=== PATIENT | male | born 1955 | race Caucasian/White ===

== ENCOUNTER 2019-04-11 10:46 | Emergency (ER) | payer MEDICAID, SELFPAY ==
[2019-04-11 10:50] VITALS: BP 198/118; PULSE 76; RESP 16; TEMP 36.8; O2SAT 96
[2019-04-11] MEDS: Tetracaine 0.5% 4 ML BTL (10:56)
[2019-04-11] MEDS: Fluorescein STRIPS 100/BOX 1 MG (10:56)
--- NOTE | 2019-04-11 11:21 | W.ED.GENAD ---
Discharge Plan Disposition Patient Disposition: HOME Condition: Stable Discharge Details Chief Complaint: EyeProblem Clinical Impression: Left eye pain, Foreign body of left eye, Hypertension Primary Care Provider: Genevieve Holland ED Provider: Sera Olsen Home Meds and New Rx's Prescriptions: Continued ibuprofen 600 mg Tablet 600 mg PO Q6H PRNRF: 0 Discharge Instructions Instructions: Eye Foreign Body (ED), Hypertension (ED) Additional Instructions: Go directly to [facility] for evaluation. Return to the emergency department if you develop any worsening or new concerning symptoms. Be sure to follow-up with your primary care doctor for reevaluation of your blood pressure. Discharge Data Discharge Date/Time-TO BE ENTERED AT DEPARTURE: 04/11/19 11:43 Discharge Physician: Sera Olsen Medical Decision Making 63-year-old male with no diagnosed medical history presents with left eye irritation, foreign body sensation and pain since waking this morning. Denies headache but does admit to pain radiating from around his eye. Denies dizziness, fever, neck pain, unilateral numbness or weakness. He does admit to some blurry vision. Does not wear contacts or glasses. Left eye exam reveals significantly injected conjunctival and sclera. Positive photophobia. Inspection of eyes including eyelid eversion negative for obvious foreign body. Wood lamp exam noted for fluoroscein uptake of what appears to be with naked eye inspection a small tissue collection which may be pinguecula. Upon slit-lamp examination, there is a small black speck noted just medial to this at 9:00. Attempted to remove this foreign body with Q-tip but unable. Patient had difficulty tolerating further exam with slit lamp. His symptoms improved with tetracaine but then returned. Unclear if the small speck is the source of his symptoms, but unable to remove as it is slightly embedded. Discussed with Dr. Cyr who can see patient at [facility] now. Patient had significantly elevated blood pressure here in the ED, initially 198/118, then 177/107. Patient denies headache, chest pain, shortness of breath or focal symptoms. He has no focal deficits on exam. Presentation does not appear consistent with central process such as stroke as he has foreign body sensation with an injected eye. Patient states he saw Dr. Holland for his hypertension recently and states that his blood pressure was improved in her office. He is advised to watch his sodium intake and to obtain a home blood pressure cuff for measuring. He is advised to follow-up with his primary care doctor for recheck of his blood pressure and to return here immediately with any worsening or new concerning symptoms. HPI General Mode of arrival: ambulatory. Date/Time Provider Initiated Documentation: 04/11/19 10:51. Limitations to Documentation: no limitations. Information obtained by: patient. HPI Narrative: Patient is a 63-year-old male with no diagnosed medical history who presents with left eye irritation, foreign body sensation and pain since awakening this morning. Patient states he feels that there is something under his left upper eyelid and feels that every time he blinks his eyes. He states he has been working outside for the past few days but does not recall specific injury. He does admit to blurry vision in the left eye. He admits to mild sensitivity to light. He does not wear contacts or glasses. He does admit to pain around the eye but denies any fever, headache, dizziness, neck pain, chest pain, shortness of breath, abdominal pain or unilateral numbness or weakness. Related Data Home Medications Medication Instructions Recorded Confirmed ibuprofen 600 mg PO Q6H PRN 04/11/19 04/11/19 Allergies Allergy/AdvReac Type Severity Reaction Status Date / Time No Known Allergies Allergy Unverified 04/11/19 10:56 General Stated Complaint: EyeProblem JULIANA: 3 Review of Systems All systems reviewed & are unremarkable except as noted in HPI and below Constitutional Constitutional: Reports as per HPI, Denies chills, Denies fever(s) and Denies headache(s) Eyes Eyes: Reports blurry vision and Reports eye pain ENT Ears, Nose, Mouth, and Throat: Denies dizziness, Denies headache(s), Denies sore throat and Denies throat swelling Cardiovascular Cardiovascular: Denies chest pain and Denies dyspnea Respiratory Respiratory: Denies cough and Denies dyspnea Gastrointestinal Gastrointestinal: Denies abdominal pain, Denies diarrhea and Denies vomiting Genitourinary Genitourinary: Denies hematuria and Denies dysuria Musculoskeletal Musculoskeletal: Denies back pain and Denies numbness Integumentary/Breasts Skin/Breast: Denies lesions and Denies rash Neurologic Neurologic: Denies dizziness, Denies headache(s), Denies focal weakness and Denies numbness Allergic/Immunologic Allergic/Immunologic: Denies throat swelling PFSH Surgical History History of back surgery (Acute) History of hernia repair (Chronic) History of knee surgery (Acute) Social History Smoking/Tobacco Use Status: Never Alcohol Intake: current Alcohol Intake frequency: 3 or more drinks per day Alcohol type: beer Drug use: Daily Substance use type: marijuana Details: 10 beers per day/ Do you feel safe at home: Yes Do you feel safe in your relationship?: Yes Exam Const General: cooperative, healthy appearing and no acute distress HENMT Head: normal to inspection Face and sinus: normal facial exam Eyes Periorbital: periorbital findings normal Eyelids: eyelids normal Conjunctivae: conjunctival abnormality left conjunctival injection diffuse Sclera: scleral abnormality left scleral injection diffuse Pupils: PERRL EOM: EOM intact bilaterally Direct ophthalmoscopy: photophobia Other: Rounded symmetrical uptake of fluorescein dye medial aspect at 9:00. This area upon inspection with the naked eye appears like a tissue collection within the conjunctiva. There is a small black speck noted only with visualization with the slit-lamp that is approximately at 9:00 that is medial to the tissue collection within the conjunctivae. No other fluorescein uptake consistent with corneal abrasion. Neck Neck: normal visual inspection and No submandibular swelling Lymphatic: no lymphadenopathy noted Chest Chest: normal inspection of the chest and no tenderness Resp Effort & Inspection: normal respiratory effort and able to speak in complete sentences Cardio Rate: regular rate Skin General skin exam: no rashes or lesions noted Neuro General: alert, awake, oriented x3, gait normal, moves all extremities and no meningeal signs Cognition: normal cognition Speech: speech normal Motor: muscle tone normal throughout Sensory Exam: no sensory deficits noted Extrem General: normal to inspection, full ROM, normal capillary refill, no calf tenderness bilaterally and no edema Psych Appearance: grossly normal Mental Status: mental status grossly normal Speech and Movement: speech and movement normal Affect: normal affect Course Vital Signs Vital signs: Vital Signs Temperature 98.2 F 04/11/19 10:50 Pulse 76 04/11/19 10:50 Respiratory Rate 16 04/11/19 10:50 Blood Pressure 198/118 H 04/11/19 10:50 Pulse Oximetry 96 04/11/19 10:50 Temperature 98.2 F 04/11/19 10:50 Temperature Source Skin 04/11/19 10:50 Pulse 76 04/11/19 10:50 Respiratory Rate 16 04/11/19 10:50 Respiratory Effort 04/11/19 10:53 Blood Pressure 198/118 H 04/11/19 10:50 Blood Pressure Position Sitting 04/11/19 10:50 Pulse Oximetry 96 04/11/19 10:50 Oxygen Delivery Method Room Air 04/11/19 10:50 Oxygen Flow Rate 0 04/11/19 10:50 Pain Level 8 04/11/19 10:50
[2019-04-11 11:39] VITALS: BP 177/107; PULSE 77; RESP 16; TEMP 36.8; O2SAT 96
--- NOTE | 2019-04-14 09:55 | NUR.NOTE ---
[facility] follow up note received via fax MD note will be sent to medical records to scan into patients chart. Nursing Note:
== END 2019-04-11 11:43 | disposition home or self-care (01) ==
PROVIDERS: Emergency Provider Physician Assistant; PCP Family Medicine
DX: H57.12 Ocular pain, left eye (principal); T15.82XA Foreign body in other and multiple parts of external eye, left eye, initial encounter; I10 Essential (primary) hypertension
CPT/HCPCS: 99283

== ENCOUNTER 2020-12-13 19:01 | Outpatient (REF) | payer MEDICAID, SELFPAY ==
[2020-12-13 21:47] LABS: Abs Immature Grans 0.02 10^3/uL (0.0-0.06); Absolute Basophil Count 0.09 10^3/uL (0.0-0.2); Absolute Eosinophil Count 0.13 10^3/uL (0.0-0.7); Absolute Lymphocyte Count 2.37 10^3/uL (1.2-3.4); Absolute Neutrophil Count 5.52 10^3/uL (1.2-6.7); Eosinophils % 1.4; HCT 44.1 % (40.0-50.0); HGB 15.5 g/dL (13.5-17.5); Immature Grans % 0.2; Lymphocytes % 25.4; MCH 33.7 pg (27.0-33.0); MCHC 35.1 % (32.0-36.0); MCV 95.9 fL (80-95); MPV 9.7 fL (8.0-11.0); Monocytes % 12.9; Neutrophils % 59.1; Nucleated RBC 0 %; Platelet Count 262 10^3/uL (130-400); RDW 11.8 % (11.8-14.1); RDW-SD 41.1 fL; WBC 9.33 10^3/uL (4.4-10.8)
[2020-12-13 21:56] LABS: ESR 10 mm/hr (0-20)
[2020-12-13 22:02] LABS: ALT 27 U/L (16-63); AST 28 U/L (15-37); Albumin 3.9 g/dL (3.4-5.0); Alkaline Phosphatase 83 U/L (46-116); BUN 10 mg/dL (7-18); Bilirubin, Total 0.8 mg/dL (0.2-1.0); CREATININE 0.8 mg/dL (0.70-1.30); Calcium 9.3 mg/dL (8.5-10.1); Chloride 98 mmol/L (98-107); Glucose 92 mg/dL (74-106); Potassium 4.6 mmol/L (3.5-5.1); Sodium 134 mmol/L (136-145); TSH (W/Ref FT4) 1.81 uIU/mL (0.36-3.74); Total Protein 7.1 g/dL (6.4-8.2)
[2020-12-14 18:21] LABS: PSA, Screening 0.9 ng/mL (0.0-4.5)
== END 2020-12-13 19:02 | disposition home or self-care (01) ==
LOC: NCHCN 19:01
PROVIDERS: PCP Family Medicine; Visit Provider Nurse Practitioner Family
DX: R10.9 Unspecified abdominal pain (principal); R63.4 Abnormal weight loss
CPT/HCPCS: 80053; 84153; 85652; 84443; 85025

== ENCOUNTER 2021-04-13 11:56 | Outpatient (REF) | payer MEDICAID, SELFPAY ==
[2021-04-15 16:05] LABS: COVID-19 RT-PCR UVMMC Result Negative (Negative)
== END 2021-04-13 11:57 | disposition home or self-care (01) ==
LOC: NCHCN 11:56
PROVIDERS: PCP Family Medicine; Visit Provider Family Medicine
DX: Z20.822 Contact with and (suspected) exposure to COVID-19 (principal); R05.8 Other specified cough
CPT/HCPCS: U0003

== ENCOUNTER 2024-04-14 15:40 | Outpatient (CLI) | payer SELFPAY ==
--- NOTE | 2024-04-14 10:45 | DI.RAD_ITS ---
Exam(s) XR HIP LT COMPLETE AP PELVIS EXAM: XR HIP LT COMPLETE AP PELVIS CLINICAL HISTORY: LEFT HIP PAIN. TECHNIQUE: 2D digital imaging was performed. Two views. COMPARISON: No exams were available for comparison FINDINGS: BONES: No acute fracture is present. No bony destructive lesion is seen. JOINTS: Shallow left acetabulum. Deformity of the right left femoral head. Severe joint space narro wing. Subchondral cysts on both sides of the joint. Superolateral subluxation. Mild degenerative c hanges in the right hip. Some bony bridging across the superior SI joints. Severe degenerative dhaliwal ges lower lumbar spine. SOFT TISSUE: Normal vascular calcifications. IMPRESSION: Show left acetabulum and left femoral head deformity having the appearance dysplasia. Severe degener ative changes of the left hip. DATA REPOSITORY: RADIATION DOSE DELIVERED:
== END 2024-04-14 15:41 | disposition home or self-care (01) ==
LOC: DIORS 15:40
PROVIDERS: PCP Family Medicine; Visit Provider Student in an Organized Health Care Education/Training Program
DX: M16.12 Unilateral primary osteoarthritis, left hip (principal)
CPT/HCPCS: 73502

== ENCOUNTER 2024-05-15 03:26 | Outpatient (CLI) | payer SELFPAY ==
[2024-05-15 12:05] LABS: HCT 41.7 % (40.0-50.0); HGB 14.9 g/dL (13.5-17.5); MCH 35.1 pg (27.0-33.0); MCHC 35.7 % (32.0-36.0); MCV 98 fL (80-95); MPV 8.6 fL (8.0-11.0); Platelet Count 290 10^3/uL (130-400); RBC 4.24 10^6/uL (4.36-5.78); RDW 12.7 % (11.8-14.1); RDW-SD 45.9 fL; WBC 8.16 10^3/uL (4.4-10.8)
[2024-05-15 12:16] LABS: Anion Gap 9.2 mmol/L (3-11); BUN 11 mg/dL (7-18); CO2 24.8 mmol/L (21.0-32.0); CREATININE 0.8 mg/dL (0.70-1.30); Calcium 8.8 mg/dL (8.5-10.1); Chloride 98 mmol/L (98-107); Glucose 86 mg/dL (74-106); Potassium 4.4 mmol/L (3.5-5.1); Sodium 132 mmol/L (136-145)
== END 2024-05-15 03:27 | disposition home or self-care (01) ==
LOC: LBO 03:26 → LBN 12:01
PROVIDERS: PCP Family Medicine; Visit Provider Student in an Organized Health Care Education/Training Program
DX: M21.952 Unspecified acquired deformity of left thigh (principal); M16.12 Unilateral primary osteoarthritis, left hip; Z01.818 Encounter for other preprocedural examination
CPT/HCPCS: 80048; 85027

== ENCOUNTER 2024-05-26 08:28 | Day surgery (SDC) | payer MEDICARE, SELFPAY ==
--- NOTE | 2024-05-26 07:31 | DSE_ITS ---
Date of service: 05/26/24 Time of Service: 11:01 DS: Diagnosis Discharge Diagnosis (1) Hypertension: Status: Acute Discharge Plan Disposition Patient Disposition: Home Condition: Good Discharge Details Reason For Visit: Left hip DJD Attending Provider: Marty Antony Primary Care Provider: Genevieve Holland Home Meds and New Rx's Prescriptions: New tramadol 50 mg tablet 50 mg PO Q4H PRNQty: 20 0RF Discontinued acetaminophen 500 mg capsule 500 mg PO Q6H PRN ibuprofen 600 mg Tablet 600 mg PO Q6H PRN No Action acetaminophen [Acetaminophen Extra Strength] 500 mg tablet 500 mg PO ONCE Patient Comments: 1000 mg ibuprofen [IBU] 600 mg tablet 600 mg PO ONCE Discharge Instructions Instructions: High blood pressure emergencies, Hydrochlorothiazide, Lisinopril Additional Instructions: Anesthesia: Blood Pressure Followup: Dr. Holland will call in a perscription for Lisinopril 20mg and Hydrochlorothiazide 12.5mg at your usual pharmacy to start when you get home today. Take your Blood pressures and record them at home twice per day starting today. When taking your blood pressure you should be sitting up with your feet flat on the floor. You have an appointment to see Dr. Holland on 05/30/2024 at 0800. We will follow along with Dr. Holland and your blood pressure readings. Once these have normalized with consecutive readings and we can reschedule the hip replacement as soon as possible. Referrals: Marty Antony MD [ [facility] STAFF PHYSICIAN] - Equipment/Supplies: Walker Activity:: Elevate Remove Dressings/Wound Care:: Do Not Remove Shower/Bathe:: Cover Diet:: As Tolerated Discharge Orders Discharge Orders: Discharge Order (Routine); Ordered 05/26/24 Ordered By: Marty Antony DS: Summary Time Spent with Patient providing and/or coordinating discharge services: Less than 30 minutes Status at Discharge Functional status at discharge: uses cane/walker Overall status at discharge: patient is back to baseline Mental Status: mental status grossly normal Speech and Movement: speech and movement normal Mood: congruent mood Affect: normal affect Quality:SDOH Health Related Social Needs: No Data to Display Exam Psych Mental Status: mental status grossly normal Speech and Movement: speech and movement normal Mood: congruent mood Affect: normal affect [facility] All Active Problems (Updated 05/26/24 @ 11:01 by Marty Antony MD) Hypertension (Acute) Acquired deformity of left hip (Acute) Osteoarthritis of left hip (Acute) Medical History (Updated 05/26/24 @ 11:01 by Marty Antony MD) History of cardiac murmur Surgical History (Updated 05/26/24 @ 08:54 by Sammi Gutierrez) History of hernia repair inguinal History of knee surgery L quad rupture History of back surgery L3 Social History Smoking/Tobacco Use Status: Former Tobacco Use Quit Date: 06/04/03 Smoking risk assessment performed?: Yes Alcohol Intake: current Alcohol Intake frequency: 3 or more drinks per day Alcohol type: beer Drug use: Daily Substance use type: marijuana Details: alcohol: t-1, 3-4 beers. Marijuana: t-1, couple puffs Housing: house Do you feel safe at home: Yes Do you feel safe in your relationship?: Yes Time Spent with Patient Time Spent with Patient: <45 minutes Time was spent: preparing to see the patient(eg.review tests), obtaining and/or reviewing separately otained hiistory, ordering medications,tests, procedures and counseling the patient
[2024-05-26 08:58] VITALS: BP 208/135; PULSE 72; RESP 18; TEMP 36.3; O2SAT 97
[2024-05-26] MEDS: Celecoxib 200 MG CAP 400 MG PO (09:34)
--- NOTE | 2024-05-26 09:42 | W.ANESPRE ---
General Info Date of Service Date Performed: 05/26/24 Height: 6 ft Weight: 77.8 kg Body Mass Index (BMI): 23.2 Surgical Procedure: Operation Date: 05/26/24 11:20 Proposed Procedure Side Surgeon p Hip Total Hip Anterior, Kari Antony MD Meds Allergies and Home Medications Allergies Allergy/AdvReac Type Severity Reaction Status Date / Time codeine AdvReac Intermediate Agitation Verified 05/26/24 08:51 Home Medication ?Medication ?Instructions ?Recorded acetaminophen 500 mg tablet 1,000 mg (2 x 500 mg) PO Q8H PRN 05/26/24 pain #90 tabs acetaminophen 500 mg tablet 500 mg PO ONCE 05/26/24 (Acetaminophen Extra Strength) aspirin 81 mg tablet,delayed 81 mg PO BID 30 days #60 tabs 05/26/24 release celecoxib 200 mg capsule (Celebrex) 200 mg PO BID PRN #60 caps 05/26/24 dexamethasone 4 mg tablet 4 mg PO DAILY #2 tabs 05/26/24 docusate sodium 100 mg capsule 100 mg PO BID #30 caps 05/26/24 (Colace) ibuprofen 600 mg tablet (IBU) 600 mg PO ONCE 05/26/24 oxycodone 5 mg tablet 5 mg PO Q6H PRN #12 tabs 05/26/24 pantoprazole 40 mg tablet,delayed 40 mg PO DAILY #14 tabs 05/26/24 release Current Visit Medications: Current Medications Generic Name Dose Route Start Last Admin Trade Name Freq PRN Reason Stop Dose Admin Acetaminophen 1,000 mg 05/26/24 08:30 Acetaminophen 500 Mg Tab PO TID ARYA Acetaminophen 1,000 mg 05/26/24 06:00 Acetaminophen 500 Mg Tab PO 05/26/24 23:59 PREOP ARYA Aspirin 81 mg 05/26/24 20:00 Aspirin E.C. 81 Mg Tabec PO BID ARYA Celecoxib 200 mg 05/26/24 20:00 Celecoxib 200 Mg Cap PO BID ARYA Celecoxib 400 mg 05/26/24 06:00 05/26/24 09:34 Celecoxib 200 Mg Cap PO 05/26/24 23:59 400 mg PREOP ARYA Administration Dexamethasone 4 mg 05/27/24 08:30 Dexamethasone 4 Mg Tab PO 05/28/24 08:31 DAILY ARYA Docusate Sodium 100 mg 05/26/24 07:50 Docusate Sodium 100 Mg Cap PO BID PRN PRN Constipation Gabapentin 300 mg 05/26/24 06:00 Gabapentin 300 Mg Cap PO 05/26/24 23:59 PREOP ARYA Hydromorphone HCl 0.5 mg 05/26/24 07:30 Hydromorphone 2 Mg/Ml Syr IVP Q2H PRN PRN Cefazolin Sodium/Dextrose 1 gm in 50 mls @ 100 mls/hr 05/26/24 08:00 Ancef Duplex IVPB 05/27/24 00:29 Q8H ARYA Ringer's Solution 1,000 mls @ 80 mls/hr 05/26/24 06:00 IV 05/26/24 23:59 INFUSION ARYA Cefazolin Sodium/Dextrose 2 gm in 50 mls @ 100 mls/hr 05/26/24 06:00 Ancef Duplex IVPB 05/26/24 23:59 PREOP ARYA Tranexamic Acid/Sodium Chloride 1,000 mg in 100 mls @ 600 mls/hr 05/26/24 06:00 IVPB 05/26/24 23:59 PREOP ARYA IV Miscellaneous Supplies 1 each 05/26/24 06:00 Iv Access IV 05/26/24 23:59 DIRECTED ARYA Ondansetron HCl 4 mg 05/26/24 07:50 Ondansetron 4 Mg/2 Ml Vial IVP Q6H PRN PRN Nausea Oxycodone HCl 0 mg 05/26/24 07:30 Oxycodone 5 Mg Tab PO Q3H PRN PRN Pain Pantoprazole Sodium 40 mg 05/27/24 07:30 Pantoprazole 40 Mg Tabcr PO DAILY@0730 ARYA Sodium Chloride 0 ml 05/26/24 06:00 Normal Saline Flush 10 Ml Syr IV 05/26/24 23:59 PRN PRN Sodium Chloride 0 ml 05/26/24 06:00 Normal Saline 10 Ml Vial IJ 05/26/24 23:59 DIRECTED PRN Sterile Water 0 ml 05/26/24 06:00 Water,Injection,Sterile 10 Ml Vial IJ 05/26/24 23:59 DIRECTED PRN PFSH Active Problems Active Problems: Problem Status Onset Code Acquired deformity of left hip Acute M21.952 Osteoarthritis of left hip Acute M16.12 Medical History Medical History (Updated 05/26/24 @ 08:53 by Sammi Gutierrez) History of cardiac murmur Medical History Comments:: pt. reports delayed emergence Surgical History Surgical History (Updated 05/26/24 @ 08:54 by Sammi Gutierrez) History of hernia repair inguinal History of knee surgery L quad rupture History of back surgery L3 Tobacco Smoking/Tobacco Use Status: Former Tobacco Use Alcohol Alcohol Intake: current Alcohol intake frequency: 3 or more drinks per day Alcohol type: beer Substance Use Substance use: Daily Substance use type: marijuana Details: alcohol: t-1, 3-4 beers. Marijuana: t-1, couple puffs Vital Signs and Lab Results Vital Signs Most Recent Vital Signs in EMR: Most Recent Vital Signs Temp Pulse Resp BP Pulse Ox 36.3 C L 72 18 208/135 H 97 05/26/24 08:58 05/26/24 08:58 05/26/24 08:58 05/26/24 08:58 05/26/24 08:58 Lab Results Blood Type / Crossmatch: No Data to Display Complete Blood Count: White Blood Count 8.16 10^3/uL (4.4-10.8) 05/15/24 11:40 Red Blood Count 4.24 10^6/uL (4.36-5.78) L 05/15/24 11:40 Hemoglobin 14.9 g/dL (13.5-17.5) 05/15/24 11:40 Hematocrit 41.7 % (40.0-50.0) 05/15/24 11:40 Platelet Count 290 10^3/uL (130-400) 05/15/24 11:40 Complete Metabolic Panel: Sodium 132 mmol/L (136-145) L 05/15/24 11:40 Potassium 4.4 mmol/L (3.5-5.1) 05/15/24 11:40 Chloride 98 mmol/L (98-107) 05/15/24 11:40 Carbon Dioxide 24.8 mmol/L (21.0-32.0) 05/15/24 11:40 BUN 11 mg/dL (7-18) 05/15/24 11:40 Creatinine 0.8 mg/dL (0.70-1.30) 05/15/24 11:40 Est GFR (CKD-EPI 2020) 97.00 (mL/min/1.73m2) 05/15/24 11:40 Calcium 8.8 mg/dL (8.5-10.1) 05/15/24 11:40 Glucose 86 mg/dL (74-106) 05/15/24 11:40 Liver Function Panel: No Data to Display Coagulation Panel: No Data to Display Cardiac Panel: No Data to Display Arterial Blood Gas: No Data to Display Venous Blood Gas: No Data to Display Pancreas Panel: No Data to Display Thyroid Panel: No Data to Display Infectious Disease: No Data to Display Blood Cultures: No Data to Display Toxicology Panel: No Data to Display Anesthesia Assessment and Plan Anesthesia History Personal History: No History of Anesthesia Complications Family History: No Family History of Anesthesia Complications Exercise Tolerance Exercise Tolerance: Metabolic Equivalents>4 Pertinent Negatives Pertinent Negatives: No Symptoms of GERD Cardiac & Pulmonary Exam Cardiac Exam: Normal S1/S2 Heart Sounds Pulmonary Exam: Clear Bilateral Breath Sounds Implantable Cardiac Device Does patient have a Pacemaker or an ICD?: No Airway Exam Known Difficult Airway: No Mallampati Class: 2 Mouth Opening: Normal (> 3cm) Thyromental Distance: Greater than 3 cm Facial Hair: Full Hdz Neck Range of Motion: Full ROM Neck Circumference: Normal Teeth Condition: Normal Dentition ASA Classification ASA Score: ASA 3 Emergency Case?: No NPO Status NPO Status: NPO Clears >2 hours, Solids >8 hours Anesthesia Plan Resuscitation Status: Full Code Anesthesia Technique: Spinal Anesthesia Airway Planned: Natural Airway Monitors Used: Standard Monitors Preoperative Comments:: Pt. very hypertensive today. After record review, noted HTN 170-190's/100-110+ since 2017. Pt. states he has white coat syndrome and has had similar conversations with PCP at [facility]. He recently bought a BP machine for home and his numbers have been normal as well as numbers like today. Given his age and HTN today, discussed with Dr. Antony and recommended to postpone procedure until BP more controlled. I spoke with [facility] and they have had similar concerns. They will call in for him to start Lisinopril 20mg PO daily as well as 12.5mg HCTZ today and see him in the office This Sunday at 0800. I discussed this with the patient who understands plan.
[2024-05-26 10:35] VITALS: BMI 23.2
--- NOTE | 2024-05-26 11:20 | NUR.NOTE ---
1115: Pt. cancelled today due to BP issues. Tom Daley CRNA and in to speak to pt. and developed a plan with pt. and PCP to start BP meds today, monitor BP and see PCP on 05/30/24. Pt. agreeable and Ortho to follow along and reschedule hip replacement as soon as possible.Nursing Note:
--- NOTE | 2024-05-26 11:21 | PT.INNT ---
PT Notes Visit Reasons: Left hip DJD Surgery cancelled by orthopedic surgeon due to HTN.
== END 2024-05-26 08:29 | disposition home or self-care (01) ==
LOC: DSU 08:29
PROVIDERS: PCP Family Medicine; Visit Provider Student in an Organized Health Care Education/Training Program
DX: M16.12 Unilateral primary osteoarthritis, left hip (principal); F12.90 Cannabis use, unspecified, uncomplicated; Z87.891 Personal history of nicotine dependence; Z53.8 Procedure and treatment not carried out for other reasons; I10 Essential (primary) hypertension; Z53.09 Procedure and treatment not carried out because of other contraindication
CPT/HCPCS: J1100; J2250; J2405; J2704

== ENCOUNTER 2024-06-12 11:36 | Inpatient (IN) | payer MEDICARE, SELFPAY ==
[2024-06-12] VITALS (54 sets, daily range): BP systolic 99–247; BP diastolic 67–134; PULSE 51–71; RESP 8–20; TEMP 36.3–36.8; O2SAT 94–100; BMI 23.1
[2024-06-12] MEDS: Acetaminophen 500 MG TAB 1000 MG PO ×2 (12:00→20:13)
[2024-06-12] MEDS: Gabapentin 300 MG CAP PO (12:00)
--- NOTE | 2024-06-12 12:14 | W.ANESPRE ---
General Info Date of Service Date Performed: 06/12/24 Height: 6 ft Weight: 77.5 kg Body Mass Index (BMI): 23.1 Surgical Procedure: Operation Date: 06/12/24 13:20 Proposed Procedure Side Surgeon p Hip Total Hip Anterior, ACTIS Left Marty Antony MD Actual Procedure Side Surgeon p Hip Total Hip Anterior, ACTIS Left Marty Antony MD Pre-Op Diagnosis Post-Op Diagnosis Acquired Deformity of Left Hip Osteoarthritis of Left Hip Meds Allergies and Home Medications Allergies Allergy/AdvReac Type Severity Reaction Status Date / Time codeine AdvReac Intermediate Agitation Verified 06/12/24 11:41 Home Medication ?Medication ?Instructions ?Recorded acetaminophen 500 mg tablet 500 mg PO ONCE 05/26/24 (Acetaminophen Extra Strength) tramadol 50 mg tablet 50 mg PO Q4H PRN #20 tabs 05/26/24 celecoxib 200 mg capsule (Celebrex) 200 mg PO BID 06/02/24 lisinopril 20 1 tab PO DAILY 06/02/24 mg-hydrochlorothiazide 12.5 mg tablet Current Visit Medications: Current Medications Generic Name Dose Route Start Last Admin Trade Name Freq PRN Reason Stop Dose Admin Acetaminophen 1,000 mg 06/12/24 06:00 06/12/24 12:00 Acetaminophen 500 Mg Tab PO 06/12/24 23:59 1,000 mg PREOP ARYA Administration Celecoxib 400 mg 06/12/24 06:00 Celecoxib 200 Mg Cap PO 06/12/24 23:59 PREOP ARYA Gabapentin 300 mg 06/12/24 06:00 06/12/24 12:00 Gabapentin 300 Mg Cap PO 06/12/24 23:59 300 mg PREOP ARYA Administration Ringer's Solution 1,000 mls @ 80 mls/hr 06/12/24 06:00 IV 06/12/24 23:59 INFUSION ARYA Cefazolin Sodium/Dextrose 2 gm in 50 mls @ 100 mls/hr 06/12/24 06:00 Ancef Duplex IVPB 06/12/24 23:59 PREOP ARYA Tranexamic Acid/Sodium Chloride 1,000 mg in 100 mls @ 600 mls/hr 06/12/24 06:00 IVPB 06/12/24 23:59 PREOP ARYA IV Miscellaneous Supplies 1 each 06/12/24 06:00 Iv Access IV 06/12/24 23:59 DIRECTED ARYA Lorazepam 0.5 mg 06/12/24 12:12 Lorazepam 2 Mg/Ml Vial IVP DIRECTED PRN Sodium Chloride 0 ml 06/12/24 06:00 Normal Saline Flush 10 Ml Syr IV 06/12/24 23:59 PRN PRN Sodium Chloride 0 ml 06/12/24 06:00 Normal Saline 10 Ml Vial IJ 06/12/24 23:59 DIRECTED PRN Sterile Water 0 ml 06/12/24 06:00 Water,Injection,Sterile 10 Ml Vial IJ 06/12/24 23:59 DIRECTED PRN PFSH Active Problems Active Problems: Problem Status Onset Code Hypertension Acute I10 Acquired deformity of left hip Acute M21.952 Osteoarthritis of left hip Acute M16.12 Medical History Medical History History of cardiac murmur Medical History Comments:: pt. reports delayed emergence Surgical History Surgical History History of hernia repair inguinal History of knee surgery L quad rupture History of back surgery L3 Tobacco Smoking/Tobacco Use Status: Former Tobacco Use Alcohol Alcohol Intake: current Alcohol intake frequency: 3 or more drinks per day Alcohol type: beer Substance Use Substance use: Daily Substance use type: marijuana Details: Patient has not had any marijuana in a couple of days per patient. Vital Signs and Lab Results Vital Signs Most Recent Vital Signs in EMR: Most Recent Vital Signs Temp Pulse Resp BP Pulse Ox 36.8 C 70 20 240/125 H 99 06/12/24 11:42 06/12/24 11:42 06/12/24 11:42 06/12/24 11:42 06/12/24 11:42 Lab Results Blood Type / Crossmatch: No Data to Display Complete Blood Count: White Blood Count 8.16 10^3/uL (4.4-10.8) 05/15/24 11:40 Red Blood Count 4.24 10^6/uL (4.36-5.78) L 05/15/24 11:40 Hemoglobin 14.9 g/dL (13.5-17.5) 05/15/24 11:40 Hematocrit 41.7 % (40.0-50.0) 05/15/24 11:40 Platelet Count 290 10^3/uL (130-400) 05/15/24 11:40 Complete Metabolic Panel: Sodium 132 mmol/L (136-145) L 05/15/24 11:40 Potassium 4.4 mmol/L (3.5-5.1) 05/15/24 11:40 Chloride 98 mmol/L (98-107) 05/15/24 11:40 Carbon Dioxide 24.8 mmol/L (21.0-32.0) 05/15/24 11:40 BUN 11 mg/dL (7-18) 05/15/24 11:40 Creatinine 0.8 mg/dL (0.70-1.30) 05/15/24 11:40 Est GFR (CKD-EPI 2020) 97.00 (mL/min/1.73m2) 05/15/24 11:40 Calcium 8.8 mg/dL (8.5-10.1) 05/15/24 11:40 Glucose 86 mg/dL (74-106) 05/15/24 11:40 Liver Function Panel: No Data to Display Coagulation Panel: No Data to Display Cardiac Panel: No Data to Display Arterial Blood Gas: No Data to Display Venous Blood Gas: No Data to Display Pancreas Panel: No Data to Display Thyroid Panel: No Data to Display Infectious Disease: No Data to Display Blood Cultures: No Data to Display Toxicology Panel: No Data to Display Anesthesia Assessment and Plan Anesthesia History Personal History: Delayed Emergence Family History: No Family History of Anesthesia Complications Exercise Tolerance Exercise Tolerance: Metabolic Equivalents>4 Pertinent Negatives Pertinent Negatives: No Major Cardiovascular Symptoms or Complaints and No Major Pulmonary Symptoms or Complaints Cardiac & Pulmonary Exam Cardiac Exam: Normal S1/S2 Heart Sounds Pulmonary Exam: Clear Bilateral Breath Sounds Implantable Cardiac Device Does patient have a Pacemaker or an ICD?: No Airway Exam Known Difficult Airway: No Mallampati Class: 2 Mouth Opening: Normal (> 3cm) Thyromental Distance: Greater than 3 cm Facial Hair: Full Hdz Neck Range of Motion: Full ROM Neck Circumference: Normal Teeth Condition: Normal Dentition (has seen dentist recentlh with some teeth pulled, none currently loose) ASA Classification ASA Score: ASA 3 Emergency Case?: No NPO Status NPO Status: NPO Clears >2 hours, Solids >8 hours Anesthesia Plan Resuscitation Status: Full Code Anesthesia Technique: Spinal Anesthesia Airway Planned: Natural Airway Monitors Used: Standard Monitors Preoperative Comments:: Plan Ativan preop for white coat elevated BP, home BP's have been more controlled. Discussed with surgeon, plan to proceed.
[2024-06-12] MEDS: Lactated Ringers 1,000 ML 80 ML IV (12:18)
[2024-06-12] MEDS: LORazepam 2 MG/ML VIAL 0.5 MG IVP (12:33)
[2024-06-12] MEDS: Normal Saline Flush 10 ML SYR IV ×2 (12:34→20:14)
[2024-06-12] MEDS: ceFAZolin 2 GM/50 ML BAG IVPB (12:50)
[2024-06-12] MEDS: TRANEXAMIC ACID/SOD. CHL. 1,000 MG/100 ML BAG 600 MG IVPB (13:02)
--- NOTE | 2024-06-12 14:24 | DI.RAD_ITS ---
Exam(s) XR HIP LT IN OR EXAM: XR HIP LT IN OR CLINICAL HISTORY: Acquired deformity of left hip TECHNIQUE: 2D and realtime digital imaging was performed. CONTRAST MATERIAL: Refer to procedure report. COMPARISON: CR XR HIP LT COMPLETE AP PELVIS from 04/14/2024 FINDINGS: Fluoroscopy was provided for Dr. Antony during the performance of a left total hip arthroplasty. Please refer to the procedure report for complete details. Ka,r=5.64 mGy IMPRESSION: RADIATION DOSE DELIVERED: 0.0 0.0 0
--- NOTE | 2024-06-12 14:45 | ROE_ITS ---
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 Depuy [place] Acetabular Component, 56mm 2. Depuy Acetabular Liner, [id number] 3. Depuy Actis Standard Collared Femoral Stem, Size 6 4. Depuy Altrx Ceramic Femoral Head, Size 36+5mm Indications: I have seen Federico in clinic for symptoms of hip arthritis with acetabular dysplasia and femoral head deformity, confirmed with radiographic findings. Federico has exhausted nonoperative methods and was having significant limitations in daily function and desired better function and less pain. I discussed the technical details of a hip replacement. I explained the risks of the procedure to include, but not limited to, bleeding, infection, pain, stiffness, fracture, damage to nerves and vessels, damage to muscles and tendons, loosening, instability, leg length inequality, need for repeat procedure, blood clot and cardiopulmonary demise. Despite these risks, Federico elected to proceed. Findings: There was significant signs of arthritis throughout the hip. This is characterized by an abundance of bone about the acetabulum, shaped as an elongated ellipse. The femoral head was flattened with significant difference between his diameters. Procedure Description: Federico was greeted in the preoperative holding area where the correct side was identified and marked. The consent was reviewed with the patient and signed. The history and physical was updated. All questions were answered. He was taken back to the operating room. A spinal anesthestic was then administered. The feet were wrapped with cast padding and Coban and then placed into the boot liners and then into the boots. Care was taken to protect the skin and make sure the heels were fully down and the boots were stable. The patient was then positioned onto the HANA table. Both legs were held in a neutral position. SCDs were applied. The patient was then slid down onto a peroneal post. Prophylactic antibiotics in the form of Cefazolin were admini stered. 1g of Tranxemic Acid was given intravenously within 30 minutes of incision. The left leg was then prepped with Chloraprep and draped in a standard fashion. A second prep with Chloraprep was performed prior to placement of a shower-curtain type drape with Iodine impregnated skin protection. A timeout to confirm correct identity, side and site, procedure, allergies, anesthesia, and medical concerns was performed. An obliquely oriented incision was made starting lateral to the ASIS and running distal over the Tensor Fascia Ssuan (TFL) muscle belly toward the fibular head, approximately 10cm. The skin and soft tissue was dissected sharply, through Valeriy?s fascia, and to the fascia of the TFL. With the fascia and superior border of the IT band identified, the fascia was incised with a new knife just above any perforators from the IT band. The TFL muscle belly was bluntly dissected away from the fascia and moved laterally. The fat between TFL and rectus was identified to ensure the dissection was not within the TFL. Blunt dissection created space between abductors and the capsule and retractor was placed over the lateral femoral neck. The fibers of the rectus femoris tendon were identified and these were freed from the anterior capsule. A second cobra retractor was placed around the medial femoral neck. The TFL was further retracted laterally to show the deep fascia. Careful dissection through this layer identified three main crossing vessels of the lateral femoral circumflex. These were cauterized in multiple locations and then cut without any noticeable bleeding. The TFL was further released bluntly from the deep fascia to expose anterior hip capsule and fat The soft tissue orthopaedic retractor was then placed beneath the TFL and against sartorius and medial soft tissues to protect and retract the soft tissues. A T-capsulotomy was then performed starting at the superior lateral acetabulum and moving distally to the intertrochanteric ridge. These capsular flaps were tagged with a No. 1 Ethibond and elevated from within. The capsular flaps were released to the shoulder of the lateral neck and to the lesser trochanter to give excellent visualization of the proximal femur. The anatomy in this region was quite challenging. There is minimal distance between the edge of the acetabulum and the greater trochanter. There is significant amount of osteophytes from the femoral head obstructing the view of the capsular attachments. There also was a significant synovitis. A neck osteotomy was performed using an oscillating saw based on preoperative templates. This cut started in the shoulder and of the lateral neck and exited medially. The saw was at all times directed medially to avoid injury to the greater trochanter. Gross traction was applied to the leg and the osteotomy opened. The femoral head was removed with a corkscrew, making sure to protect the TFL on its exit. There was significant forming in the femoral head. It was flattened with notable asymmetry of the head. Traction was released after head removal. Portions of the rectus obscuring visualization were minimally elevated off the superior acetabulum. There is extensive synovitis seen within the hip itself. This was sharply debrided for better visualization and to remove this inflamed tissue. Then, an anterior retractor was placed over the anterior wall between capsule and labrum and attached to the Gripper retraction system. The femur was rotated to 90 degrees and medial capsule was fully released until the lesser trochanter was palpable and visible; the femur was returned to 30 degrees. A posterior retractor was placed similarly between capsule and labrum. This provided excellent visualization. The acetabulum was notably deformed. It is quite shallow with big bulk of the posterior wall and superior posterior wall. The labrum was removed with a knife. There was significant chondromalacia of the superior acetabulum. Acetabular reaming began with a 49mm reamer. This first reaming was directed anterior to posterior and medial to get down to the true floor. This was inspected and reamed until the true floor was reached. The anterior retractor was then released and entry and exit was provided by traction on the capsular flaps. I then reamed sequentially up to a 56mm reamer where good fit was obtained. The larger reamers were oriented based on anatomical reference of the anterior and lateral paris to ensure proper abduction and anteversion. Positioning and size was confirmed with the fluoroscopy. A 56mm Depuy [place] acetabular component was selected. The deep tissues were irrigated. The acetabular component was then impacted in a position of about 40-45 degrees of abduction and 15-20 degrees of anteversion. Fluoroscopy was used to confirm this. There was excellent sports centre manager of the acetabular component and the inserting handle was removed. A primary acetabular screw was placed into the ilium by drilling through one of the holes in the acetabular component. This was measured and an approrpriately sized screw was placed with excellent purchase. It was checked not to be proud. This had excellent purchase and stability. However, given the deformity a second screw was placed in a similar fashion. The acetabular liner, Depuy [id number] polyethylene liner, was inserted and lined up with the tines of the acetabular component. There was no soft tissue interposition. The liner was then impacted into position and confirmed to be well-seated. A portion of the manfred-articular cocktail was then injected around the acetabulum into the capsule and periosteum. This cocktail consisted of 123mg of Ropivacaine, 0.25mg of Epinephrine, 0.04mg of Clonidine, and 15mg of Ketorolac, diluted to 50cc. The leg was rotated to 120 degrees. Any remaining medial capsule was released until the lesser trochanter was easily palpable. A retractor was placed medially. The lateral capsule was further released into the shoulder to allow access to the greater trochanter. A Fernández retractor was placed over the greater trochanter which allowed the trochanter to flip in front of the capsule for excellent exposure. The leg was brought down into maximal extension and 20 degrees of adduction while ensuring there was no impingement on the acetabulum. Any remnant capsule within the trochanter was released. Piriformis and obturator externis were identified and protected. There was excellent access to the proximal femur. The lateral neck remnant was removed with a rongeur. A blunt canal probe was used to identify the canal and trajectory for later broaching. A box osteotome initiated the broach course. A small curved rasp and a curved curette were used to work laterally. Broaching then began with a starter Actis broach. This was inserted manually around the trochanter and into the canal before mallet blows. The broach was seated to a few millimeters below the cut level based on the neck cut and the preoperative template. Sequential broaching was continued with the [employer] pneumatic broaching device until a tight fit was obtained with good rotational control of the femur. A trial standard neck was inserted along with a +5 trial head. The leg was brought out of extension and adduction and then reduced with traction and internal rotation. The leg was stable anteriorly in a position of 30 degrees of extension and 90 degrees of external rotation. Fluoroscopy was used to ensure there was no fracture and the stem was seated well. Leg lengths were checked with an AP pelvis and pelvic reference points. [employer] navigation system was used to confirm appropriate positioning and leg length and offset. Once content with the desired offset and leg lengths, the leg was brought back into extension, external rotation and adduction. The periosteum and surrounding tissue was injected with remaining portion of the manfred-articular cocktail. The proximal femur was irrigated as well as the deep tissues. The Depuy Actis standard collared stem, size 6, was then manually inserted into the proximal femur making sure to control rotation. It was then malleted into position with light blows, giving breaks to allow bone expansion and decrease risk of fracture. The selected Depuy Altrx Ceramic Head, size 36+5mm, was then placed onto the clean and dry trunnion and secured with impac tion onto the tapered fit. The leg was brought back out of extension and adduction and reduced with traction and internal rotation. Stability was confirmed with no shuck at 90 degrees of external rotation and 30 degrees of extension. No impingement through range of motion arc. Final x-ray images were obtained with fluoroscopy to confirm adequate positioning and no intraoperative fracture. The deep tissues were thoroughly irrigated with Surgiphor, betadine solution. This was allowed to sit in the wound for 3 minutes before being thoroughly irrigated out with normal saline. The capsule was then reapproximated with the previously placed Ethibond sutures. The TFL fascia was finally closed with a No. 2 Stratafix, barbed suture. Deep tissues were then reapproximated with 0 Vicryl and a running 2-0 Vicryl. The skin was closed with a running 4-0 Monocryl in a subcuticular fashion. This was reinforced with skin glue. A Mepilex silver dressing was applied. At the end of the case, all counts were correct. Federico was transferred to the hospital bed without difficulty and suffering no apparent complication. Federico has a good prognosis. Physical therapy will start today and without restrictions, weight-bearing as tolerated. Aspirin 81mg BID will be used for DVT prophylaxis. Date of Procedure: 06/12/24
--- NOTE | 2024-06-12 15:29 | W.ANESPOSTOP ---
Postoperative Evaluation Date, Time and Location Date Performed: 06/12/24 Time Performed: 15:29 Patient Location: PACU Vital Signs Most Recent Imported Vital Signs: Most Recent Vital Signs Temp Pulse Resp BP Pulse Ox 36.3 C L 56 L 15 247/98 H 99 06/12/24 15:25 06/12/24 15:25 06/12/24 15:26 06/12/24 15:25 06/12/24 15:26 Pain Score Most Recent Pain Score: Most Recent Pain Score Pain Level 3 06/12/24 15:20 Assessment Mental Status: Awake (Alert & Oriented to Patient Baseline) Airway and Respiratory Function: Patent airway with normal (patient baseline) respiratory exam Cardiovascular Function: Hemodynamically Stable Hydration Status: Adequately Hydrated Nausea & Vomiting: No Nausea or Vomiting Pain: Pain is tolerable per patient Peripheral Nerve Block: Other (Spinal wearing off appropriately at this time. RNs will continue to monitor and notify if not complete resolution. ) Postoperative Comments:: Blood pressures are again rising, last 204 systolic at bedside. Ordered his daytime anti-hypertensives. Will be dosed at 1600.
[2024-06-12] MEDS: hydroCHLOROthiazide 12.5 MG TAB PO (16:01)
[2024-06-12] MEDS: Lisinopril 20 MG TAB PO (16:02)
[2024-06-12] MEDS: ceFAZolin 1 GM/50 ML BAG IVPB (20:13)
[2024-06-12] MEDS: Aspirin E.C. 81 MG TABEC PO (20:14)
[2024-06-13 02:58] VITALS: BP 132/89; PULSE 68; RESP 20; TEMP 37.2; O2SAT 99
[2024-06-13] MEDS: ceFAZolin 1 GM/50 ML BAG IVPB (03:25)
[2024-06-13] MEDS: Aspirin E.C. 81 MG TABEC PO (07:19)
[2024-06-13] MEDS: Acetaminophen 500 MG TAB 1000 MG PO (07:19)
[2024-06-13] MEDS: Pantoprazole 40 MG TABCR PO (07:19)
[2024-06-13] MEDS: Normal Saline Flush 10 ML SYR (07:22)
[2024-06-13 07:41] VITALS: BP 113/76; PULSE 68; RESP 16; TEMP 37; O2SAT 99
[2024-06-13] MEDS: Dexamethasone 4 MG TAB PO (07:47)
--- NOTE | 2024-06-13 08:28 | W.PM.DS.N ---
Date of service: 06/13/24 Time of Service: 11:47 DS: Diagnosis Discharge Diagnosis (1) Hypertension: Status: Acute (2) Acquired deformity of left hip: Status: Acute (3) Osteoarthritis of left hip: Status: Acute Discharge Plan Disposition Patient Disposition: Home Condition: Good Discharge Details Reason For Visit: left hip arthritis with deformity Admit Date/Time: 06/12/24 11:36 Admit Provider: Marty Antony Attending Provider: Marty Antony Primary Care Provider: Genevieve Holland [facility] Course Hospital Course: Patient was admitted to the medical/surgical floor following the procedure for acute monitoring of labile hypertension as well as therapy given the significant deformity of the hip. The surgery was tolerated well without any notable medical, surgical, or anesthetic complications. Mobilization began postoperatively. He was voiding spontaneously. Vitals were stable. Physical therapy worked with the patient and was cleared for discharge home. No acute medical issues. Pain was controlled on oral regimen. Home Meds and New Rx's Prescriptions: New aspirin 81 mg tablet,delayed release (DR/EC) 81 mg PO BID Qty: 60 0RF acetaminophen 500 mg tablet 1,000 mg PO Q8H PRN (Reason: pain) Qty: 90 3RF pantoprazole 40 mg tablet,delayed release (DR/EC) 40 mg PO DAILY Qty: 30 0RF oxycodone 5 mg tablet 5 mg PO Q6H PRN (Reason: pain) Qty: 12 0RF Continued lisinopril-hydrochlorothiazide 20-12.5 mg tablet 1 tab PO DAILY celecoxib [Celebrex] 200 mg capsule 200 mg PO BID Qty: 60 0RF Discontinued acetaminophen [Acetaminophen Extra Strength] 500 mg tablet 500 mg PO ONCE Patient Comments: 1000 mg tramadol 50 mg tablet 50 mg PO Q4H PRNQty: 20 0RF Discharge Instructions Additional Instructions: Total Hip Discharge Instructions Activity: The most important activity is to walk. You should try to take short walks a few times a day. You have no restrictions on movement or positioning, but do not try to force what you do. You will find some stiffness and weakness with hip flexion (lifting your knee). Do not try to strengthen this too early, continue to practice walking and stairs and this will come. - Outpatient physical therapy can be helpful to help return you to a normal gait and improve your flexibility and strength. This can start around 2 weeks. For some patients, it?s not necessary. Usually this is determined at the time of discharge or at the first post-operative visit. - You should wear the JERRY hose on both legs for 2 weeks. Dressing: Keep the surgical dressing in place for at least one week. After the first week it may be removed and replace with light gauze and tape or nothing. It may get wet after 3 days but avoid soaking the dressing. If it gets wet, just lightly pat dry. It is important to always keep some gauze between skin folds, especially when you are sitting. Spend some time with the wound exposed when you are lying flat as the incision does wrinkle onto itself. Medications: - You should take Tylenol and an anti-inflammatory Celebrex as your primary pain control medications. If the Celebrex is too expensive or not covered, please call the office for another alternative (Advil/Ibuprofen or Naproxen/Aleve). - You have been prescribed a stronger pain medication Oxycodone for breakthrough pain, take as needed as prescribed. - You have also been prescribed a stomach acid reduction agent Pantoprozole to help reduce stomach acid and reflux. - You will be taking Aspirin 81mg twice a day for DVT prevention unless instructed otherwise. - If you have constipation you should take Colace or Miralax (both copx-wvy-wkbsyop). It takes most people 3-4 days to have a bowel movement. Follow-up: 2 weeks If you have any acute concerns or questions, please do not hesitate to contact the office at [phone]. You may contact Dr. Antony with any questions after hours through the hospital at [phone] or on his cell phone at [phone]. Stand Alone Forms: Nursing Discharge Form Referrals: Marty Antony MD [ [facility] STAFF PHYSICIAN] - (Please call for a follow up in 14 days) Activity:: Activity as Tolerated Equipment/Supplies:: Walker Diet:: As Tolerated Discharge Orders Discharge Orders: Discharge Order (Routine); Ordered 06/13/24 Ordered By: Amaury Cortez Discharge Data Discharge Date/Time-TO BE ENTERED AT DEPARTURE: 06/13/24 12:35 DS: Summary Time Spent with Patient providing and/or coordinating discharge services: Less than 30 minutes Status at Discharge Functional status at discharge: uses cane/walker Overall status at discharge: patient is progressing back to baseline Mental Status: mental status grossly normal Speech and Movement: speech and movement normal Mood: congruent mood Affect: normal affect Quality:SDOH Health Related Social Needs: No Data to Display Exam Narrative Exam Narrative: Resting in the chair. NAD. AAOx3. LLE dressing c/d/i SILT LFCN, FN, Sciatic Able to actively flex and abduct the hip. Intact knee extension as well as ankle DF/PF. Psych Mental Status: mental status grossly normal Speech and Movement: speech and movement normal Mood: congruent mood Affect: normal affect DS: Data Vitals/I&O Vitals and I&O: Vital Signs Temperature 37 C 06/13/24 07:41 Temperature Source Temporal Artery Scan 06/13/24 07:41 Pulse 68 06/13/24 07:41 Pulse Rhythm Regular 06/12/24 19:54 Pulse 70 06/12/24 16:31 Respiratory Rate 16 06/13/24 07:41 Respiratory Effort Normal, Non-Labored 06/12/24 19:54 Respiratory Depth Normal 06/12/24 19:54 Respiratory Pattern Normal 06/12/24 19:54 Blood Pressure 113/76 06/13/24 07:41 Blood Pressure Mean 145 06/12/24 16:31 Pulse Oximetry 99 06/13/24 07:41 Respiratory End-tidal CO2 27 06/12/24 16:11 Oxygen Delivery Method Room Air 06/13/24 07:41 Oxygen Flow Rate 0 06/13/24 07:41 Pain Level 0 06/13/24 07:41 Intake & Output 06/12/24 06/12/24 06/13/24 11:59 23:59 11:59 Intake Total 510 / 510 910 / 910 Output Total 825 / 825 125 / 125 Balance -315 / -315 785 / 785 Weight 77.5 kg 77.5 kg Intake: IV 510 / 510 710 / 710 Oral 200 / 200 Output: Urine 575 / 575 125 / 125 Estimated Blood Loss 250 / 250 Other: Urine Color Yellow Straw Urine Appearance Clear Clear Urine Odor Normal Emesis Description None PFSH All Active Problems Hypertension (Acute) Acquired deformity of left hip (Acute) Osteoarthritis of left hip (Acute) Medical History History of cardiac murmur Surgical History History of hernia repair inguinal History of knee surgery L quad rupture History of back surgery L3 Social History Smoking/Tobacco Use Status: Former Tobacco Use Quit Date: 06/04/03 Smoking risk assessment performed?: Yes Alcohol Intake: current Alcohol Intake frequency: 3 or more drinks per day Alcohol type: beer Drug use: Daily Substance use type: marijuana Details: Patient has not had any marijuana in a couple of days per patient. Housing: house Do you feel safe at home: Yes Do you feel safe in your relationship?: Yes Time Spent with Patient Time Spent with Patient: <45 minutes Time was spent: preparing to see the patient(eg.review tests), obtaining and/or reviewing separately otained hiistory, ordering medications,tests, procedures and counseling the patient
--- NOTE | 2024-06-13 08:40 | IN_ITS ---
PT Notes Visit Reasons: left hip arthritis with deformity Physical Therapy Inpatient Initial Evaluation Date: 06/13/2024 Referring Doctor: Marty Antony MD PT Orders: PT CONSULT: S/P Ortho surgery. Precautions: WBAT on the left LE with AD. Patient Profile/Admitting Diagnosis: Federico is a 68-year-old male with left hip arthritis with pronounced deformity of the femoral head status post left anterior total hip arthroplasty on postoperative day 1. PMHX: Surgical History History of hernia repair History of knee surgery History of back surgery Social History/Home Situation: Lives with in a private home with one-step to enter. Bedroom is on the second floor with 10 steps with a rail on one side and the wall for support on the other side. Was using bilateral axillary crutches 2 weeks preceding surgery to increased difficulty and pain level of mobilizing Equipment Owned/DME: Bilateral axillary crutches Subjective: Excited about walking. Denied headache, chest pain, and lightheadedness throughout session. Happy with how much she is able to stand more erect. Feels much improved length after left LE. Objective: General Observation: Mepilex Ag over surgical incision. TDS to be legs. Mental Status: A&O x 4 Pain: 1/10 in the L hip ROM: Right Lower Extremity: Hip flexion WFL. Hip abduction WFL. Knee flexion WFL. Ankle dorsiflexion WFL. Ankle plantarflexion WFL. Left Lower Extremity: Hip flexion allows up to 100 degrees of flexion while seated at edge of bed. Hip abduction WFL. Knee flexion WFL. Ankle dorsiflexion to neutral only. Ankle plantarflexion WFL. Strength: Right Lower Extremity: Hip flexors 5/5. Hip abductors 5/5. Knee flexors 5/5. Knee extensors 5/5. Ankle dorsiflexors 5/5. Ankle plantarflexors 5/5. Left Lower Extremity:Hip flexors 3-/5. Hip abductors 4/5. Knee flexors 4-/5. Knee extensors 4-/5. Ankle dorsiflexors 3-/5. Ankle plantarflexors 4-/5. Sensation: Intact as to pain and light pressure in B LE Bed Mobility/Transfers: Minimal cueing provided for use of B hands as needed for support, movement sequence, AD management, and posture to reduce fall risk and minimize pain report Supine to sit stand by assist with HOB at 30 degrees Sit to stand stand by assist Stand to sit stand by assist Bed to chair stand by assist Gait: Facilitate safe and correct performance of level surface ambulation covering a distance of 150 feet using front-wheeled walker. Decreased dorsiflexion on the left due to pre-existing foot drop. Step height and length asymmetric. Increased trunk flexion. Limit minimal verbal cues provided for increased extension of the trunk and for more symmetrical BLE movements. Staors: Guided patient with safe correct negotiation and 6 x 4 inch steps and 4 x 6 inch x 1 hold onto bilateral rails with step-to gait pattern with minimal verbal cues provided for increased hip flexion on the left side due to decreased dorsiflexion at the L ankle. Report of increased pain in the left hip. Balance: Static Sitting: Normal Dynamic Sitting: Normal Static Standing: Fair Dynamic Standing: Fair Special Tests: Mobility Limitations Standardized Measure [facility] 6 clicks Basic Mobility Inpatient Short Form: Raw Score: 23 CMS Score: 11% deficit Informed Consent/Education: Patient was instructed in purpose of PT consult. Packet containing YESSICA exercise protocol has been given to patient. Education and training on initial set of exercises that can be done at home have been completed with patient. Trained patient with correct performance of exercises below to maximize motor control, joint flexibility, soft tissue extensibility of the L hip musculature to facilitate return to independent functional mobility performance. Access Code: [email or web address] URL: [email or web address] Date: 06/13/2024 Prepared by: Karoline Phelan Exercises - Gluteal Sets - 1 x daily - 7 x weekly - 1 sets - 10 reps - 5 hold - Supine Heel Slide - 1 x daily - 7 x weekly - 1 sets - 10 reps - 5 hold - Supine Ankle Pumps - 1 x daily - 7 x weekly - 1 sets - 10 reps - 5 hold - Seated March - 1 x daily - 7 x weekly - 1 sets - 10 reps - 5 hold - Seated Long Arc Quad - 1 x daily - 7 x weekly - 1 sets - 10 reps - 5 hold Assessment: Patient requires use of a front-wheeled walker for mobility ADL performance to maximize independence and reduce fall risk. Patient felt more secure with use of FWW compared to bilaterl axillary crutches. Pre-existing L foot drop felt much better during ambulation activity without obvious steppage gait. Posture comparatively more upright compared to pre-op status. Patient presents with clinical signs and symptoms consistent with current/admitting diagnoses that have resulted to mobility limitations, gait instability, generalized weakness, and impairment of motor control as de monstrated by the following impairment level findings: 1. Decreased strength to left hip major muscle groups 2. Impaired standing balance 3. Limitation of joint range of motion in left hip 4. Foot drop on L Impairments are contributing to the following functional limitations: 1. Inability to safely ambulate without assistive device 2. Increase completion time for mobility ADL performance 3. Increased fall risk Patient is assessed as a 04507 moderate complexity based on the following: History: 68-year-old male with impairment level findings, functional limitations, and past medical history as indicated above Examination: Demonstrable impairment in strength, balance, and mobility level with underlying impairments and functional limitations as documented above Presentation: Evolving Decision Makin moderate complexity Goals: N/A. PT evaluation and 1-2 treatment sessions only for functional mobility training using recommended AD and for HEP instruction. Plan of Care/Treatment Plan: N/A. PT evaluation and 1-2 treatment session only for functional mobility training using recommended AD and for HEP instruction. DISCHARGE RECOMMENDATIONS: Home when medically cleared by orthopedic surgeon. Recommend outpatient PT services in order to optimize functional mobility outcomes and facilitate return to independent community ambulation without an assistive device. TREATMENT CODE/TIME: 78546 x 20 minutes for 1 unit, 68201 x 30 minutes for 2 units (8:40-9:30). Thank you for the opportunity to participate in the care of this patient. Karoline Phelan PT, DPT, CLT [facility] [place], [place]
--- NOTE | 2024-06-13 09:18 | PDOC.CMIN ---
Date of service: 06/13/24 Time of Service: 09:19 Care Management Initial Assmt Initial Assessment Reason for Hospitalization: left total hip Functional Status/Living Situation Town of Residence: [place], [place] Resides with: Spouse (group practice pediatrician Natasha) Advance Directives Advance Directives: Do you have an Advance Directive: N 03/10/24 08:35 AD On File at [facility]: N 03/10/24 08:35 Date Asked 06/10/24 06/10/24 16:36 AD Date Reviewed COLST On File at [facility] COLST Date Scanned Code Status Resuscitation Status Full Code Portal Pt does not currently have a portal and education provided: Yes Insurance Coverage/Financial Issues Insurance: Medicare Part A only Care Team Visit Care Team Role Provider Type Genevieve Holland Primary Care Provider NON-[facility] STAFF PHYSICIAN InPatient [facility]iden [facility]ry Other Providers OTHER Marty Antony MD Admit Provider [facility] STAFF PHYSICIAN Attending Provider Discharge Potential Discharge Needs: Surgical F/U Appt Anticipated Barriers to Discharge: None Identified Patient/Family Education Needs: Review discharge instructions, discuss Ask Me Three Transportation: Private vehicle Plan: Anticipate Federico will be discharged home with no new services. He will follow up with his PCP, surgeon and plan of care and transport with family. CM will follow and continue to support discharge needs. Social Determinants of Health Screening Will the Patient Participate in the Screening?: Declined to provide PFSH All Active Problems Hypertension (Acute) Acquired deformity of left hip (Acute) Osteoarthritis of left hip (Acute) Medical History History of cardiac murmur Surgical History History of hernia repair inguinal History of knee surgery L quad rupture History of back surgery L3 Social History Smoking/Tobacco Use Status: Former Tobacco Use Quit Date: 06/04/03 Smoking risk assessment performed?: Yes Alcohol Intake: current Alcohol Intake frequency: 3 or more drinks per day Alcohol type: beer Drug use: Daily Substance use type: marijuana Details: Patient has not had any marijuana in a couple of days per patient. Housing: house Do you feel safe at home: Yes Do you feel safe in your relationship?: Yes
[2024-06-13 11:17] VITALS: BP 113/77; PULSE 88; RESP 16; TEMP 37.2; O2SAT 98
[2024-06-13] MEDS: hydroCHLOROthiazide 12.5 MG TAB PO (12:22)
[2024-06-13] MEDS: Lisinopril 20 MG TAB PO (12:22)
--- NOTE | 2024-06-13 13:57 | CMPROGNOTE_ITS ---
Date of service: 06/13/24 Time of Service: 13:57 Care Management Progress Note Progress Note Text Progress Note Text: Federico was admitted on 06/12/24 following a Total Hip Replacement. Post- operatively he developed hypertension and remained hospitalized over night for treatment and monitoring. His blood pressure returned to normal and he did well working with PT. Federico was discharged home with no new services and transported with a friend. Social Determinants of Health Screening Will the Patient Participate in the Screening?: Declined to provide
--- NOTE | 2024-06-13 15:16 | CHAPLAIN ---
Federico was waiting to be discharged when I visited this morning. He lives in [place] and his partner was here to pick him up. They were both very pleasant, just anxious about getting Federico discharged so they could get chores done at home on time.
== END 2024-06-13 12:35 | disposition home or self-care (01) | DRG 470 ==
LOC: PDS 11:37 → MS 16:47
PROVIDERS: Admitting Provider Student in an Organized Health Care Education/Training Program; PCP Family Medicine; Visit Provider Student in an Organized Health Care Education/Training Program
PROC: 0SRB04A Replacement of Left Hip Joint with Ceramic on Polyethylene Synthetic Substitute, Uncemented, Open Approach (ICD-10-PCS; CPT 27130; principal; 2024-06-12 13:00)
DX: M16.12 Unilateral primary osteoarthritis, left hip (principal); I10 Essential (primary) hypertension; M21.952 Unspecified acquired deformity of left thigh
CPT/HCPCS: 27130; 20985; 97162; 97530; 73501; C1776; J0690; J1100; J2060; J2250; J2401; J2405; J2704; J8540

== ENCOUNTER 2024-06-23 13:59 | Outpatient (CLI) | payer SELFPAY ==
--- NOTE | 2024-06-23 10:00 | DI.RAD_ITS ---
Exam(s) XR HIP LT COMPLETE AP PELVIS EXAM: XR HIP LT COMPLETE AP PELVIS INDICATION: 1st post op s/p L YESSICA. COMPARISON: CR XR HIP LT COMPLETE AP PELVIS from 04/14/2024 XA XR HIP LT IN OR from 06/12/2024 TECHNIQUE: 2D digital imaging was performed. Two views. FINDINGS: Stable alignment of left total hip prosthesis. No abnormal surrounding bony lucencies. Mild degener ative changes again noted of the right hip. DATA REPOSITORY: RADIATION DOSE DELIVERED:
== END 2024-06-23 14:00 | disposition home or self-care (01) ==
LOC: DIORS 15:41
PROVIDERS: PCP Family Medicine; Visit Provider Student in an Organized Health Care Education/Training Program
DX: Z96.642 Presence of left artificial hip joint (principal); Z47.1 Aftercare following joint replacement surgery
CPT/HCPCS: 73502

== ENCOUNTER → 2024-07-21 10:39 | Outpatient (BNVA) | payer MEDICARE, SELFPAY | PROVIDERS: PCP Family Medicine; Referring Provider Family Medicine; Visit Provider Student in an Organized Health Care Education/Training Program | DX: Z47.1 Aftercare following joint replacement surgery (principal); Z96.642 Presence of left artificial hip joint | CPT/HCPCS: 99024 ==

== ENCOUNTER 2025-05-04 21:22 | Outpatient (REF) | payer MEDICARE, SELFPAY ==
[2025-05-04 22:11] LABS: Hemoglobin A1C 4.8 % (<5.7)
[2025-05-04 22:26] LABS: ALT 23 U/L (10-49); AST 39 U/L (<34); Albumin 4.2 g/dL (3.2-5.0); Alkaline Phosphatase 56 U/L (46-116); Anion Gap 5 mmol/L (3-11); BUN 11 mg/dL (9-23); Bilirubin, Total 0.60 mg/dL (0.2-1.2); CO2 26.0 mmol/L (20.0-31.0); Calcium 9.1 mg/dL (8.3-10.6); Chloride 101 mmol/L (98-107); Cholesterol 231 mg/dL (<200); Glucose 87 mg/dL (74-106); HDL Cholesterol 102 mg/dL (>40); Potassium 4.8 mmol/L (3.5-5.1); Sodium 132 mmol/L (136-145); Total Protein 6.7 g/dL (5.7-8.2)
== END 2025-05-04 21:23 | disposition home or self-care (01) ==
LOC: NCHCN 21:22
PROVIDERS: PCP Family Medicine; Visit Provider Family Medicine
DX: Z86.73 Personal history of transient ischemic attack (TIA), and cerebral infarction without residual deficits (principal)
CPT/HCPCS: 80053; 80061; 83036